=== PATIENT | male | born 1945 | race Caucasian/White ===

== ENCOUNTER 2018-01-19 10:48 | Emergency (ER) | payer MEDICARE, MEDICAID ==
[2018-01-19] MEDS ORDERED: fentaNYL 100 MCG/2 ML INJECTION (J3010) As Ordered (11:52)
[2018-01-19 12:59] LABS: BASO # 0.1 10^3/uL (0.0-0.2); BASO % 0.8 % (0.0-1.0); EOS # 0.2 10^3/uL (0.0-0.50); EOS % 2.2 % (0.0-3.0); HEMATOCRIT 46.8 % (42.0-52.0); HEMOGLOBIN 16.1 g/dl (13.5-17.5); IMMATURE GRANULOCYTE % 0.6 % (0-3.0); LYMPH # 1.9 10^3/uL (1.5-4.5); LYMPH % 24.6 % (24.0-44.0); MEAN CORPUSCULAR HEMOGLOBIN 29.9 pg (27.0-33.0); MEAN CORPUSCULAR HGB CONC 34.4 g/dl (32.0-36.5); MEAN CORPUSCULAR VOLUME 86.8 fl (80.0-96.0); MONO # 0.7 10^3/uL (0.0-0.8); MONO % 9.3 % (0.0-5.0); NEUTROPHILS # 4.8 10^3/uL (1.8-7.7); NEUTROPHILS % 62.5 % (36.0-66.0); PLATELET COUNT, AUTOMATED 271 10^3/uL (150-450); RED BLOOD COUNT 5.39 10^6/uL (4.30-6.10); RED CELL DISTRIBUTION WIDTH 13.2 % (11.5-14.5); WHITE BLOOD COUNT 7.7 10^3/uL (4.0-10.0)
[2018-01-19 13:39] LABS: ALBUMIN 4.2 GM/DL (3.2-5.2); ALBUMIN/GLOBULIN RATIO 1.31 (1.00-1.93); ALKALINE PHOSPHATASE 85 U/L (45-117); ALT/SGPT 34 U/L (12-78); ANION GAP 6 MEQ/L (8-16); AST/SGOT 29 U/L (7-37); BILIRUBIN,DIRECT 0.2 MG/DL (0.0-0.2); BILIRUBIN,TOTAL 0.6 MG/DL (0.2-1.0); BLOOD UREA NITROGEN 16 MG/DL (7-18); CALCIUM LEVEL 9.1 MG/DL (8.8-10.2); CARBON DIOXIDE LEVEL 28 MEQ/L (21-32); CHLORIDE LEVEL 106 MEQ/L (98-107); CPK CREATINE PHOSPHOKINASE 157 U/L (39-308); CREATININE FOR GFR 1.29 MG/DL (0.70-1.30); GLOMERULAR FILTRATION RATE 58.1 (>42); GLUCOSE, FASTING 89 MG/DL (70-100); LIPASE 95 U/L (73-393); MB/CK RELATIVE INDEX 1.27 (< OR =4); POTASSIUM SERUM 4.1 MEQ/L (3.5-5.1); SODIUM LEVEL 140 MEQ/L (136-145); TOTAL PROTEIN 7.4 GM/DL (6.4-8.2); TROPONIN I < 0.02 NG/ML (< 0.10)
[2018-01-19] MEDS ORDERED: ISOVUE-370 76% 100ML VIAL (Q9967) As Ordered (13:39)
[2018-01-19 14:00] LABS: NT-PRO BNP 169 PG/ML (<125)
== END 2018-01-19 15:30 | disposition home or self-care (01) ==
LOC: M ED 10:48
DX: R07.9 Chest pain, unspecified (principal); R06.02 Shortness of breath; Z87.442 Personal history of urinary calculi
CPT/HCPCS: Q9967

== ENCOUNTER → 2019-09-14 | Outpatient (REF) | payer MEDICARE, MEDICAID ==
[~2019-09-14] MED LIST: OXYC1TAB23 PO
[2019-09-14 16:21] LABS: CREATININE FOR GFR 1.31 MG/DL (0.70-1.30); GLOMERULAR FILTRATION RATE 56.8 (>42); POTASSIUM SERUM 3.8 MEQ/L (3.5-5.1)
== END ==
LOC: M SFHCPLAZ 14:10
PROVIDERS: ATTEND Family Medicine
DX: Z01.818 Encounter for other preprocedural examination (principal)
CPT/HCPCS: 36415; 80048; 93005; G0463

== ENCOUNTER → 2020-05-17 | Outpatient (CLI) | payer MEDICARE, MEDICAID ==
[~2020-05-17] MED LIST changes: +ALEV220T22 PO; +BACL10TA2 PO
[2020-05-17 19:05] LABS: HEMATOCRIT 45.2 % (42.0-52.0); HEMOGLOBIN 15.4 g/dl (13.5-17.5); MEAN CORPUSCULAR HEMOGLOBIN 30.7 pg (27.0-33.0); MEAN CORPUSCULAR HGB CONC 34.1 g/dl (32.0-36.5); MEAN CORPUSCULAR VOLUME 90.2 fl (80.0-96.0); PLATELET COUNT, AUTOMATED 267 10^3/uL (150-450); RED BLOOD COUNT 5.01 10^6/uL (4.30-6.10); WHITE BLOOD COUNT 5.9 10^3/uL (4.0-10.0)
[2020-05-17 19:16] LABS: INR 0.98; PROTHROMBIN TIME 13.2 SECONDS (11.8-14.0)
[2020-05-17 19:24] LABS: CALCIUM LEVEL 9.3 MG/DL (8.8-10.2); CREATININE FOR GFR 1.53 MG/DL (0.70-1.30); GLOMERULAR FILTRATION RATE 47.5 (>42); POTASSIUM SERUM 4.1 MEQ/L (3.5-5.1)
[2020-05-17 19:31] LABS: APPEARANCE, URINE TURBID (CLEAR); BACTERIA, URINE AUTO NEGATIVE (NEGATIVE); BILIRUBIN, URINE AUTO NEGATIVE (NEGATIVE); BLOOD, URINE BLOOD NEGATIVE (NEGATIVE); COLOR, URINE YELLOW (YELLOW); GLUCOSE, URINE (UA) AUTO NEGATIVE (NEGATIVE); KETONE, URINE AUTO TRACE mg/dL (NEGATIVE); LEUKOCYTE ESTERASE, URINE AUTO 2+ (NEGATIVE); NITRITE, URINE AUTO NEGATIVE (NEGATIVE); PROTEIN, URINE AUTO NEGATIVE (NEGATIVE); RBC, URINE AUTO 0 /HPF (0-3); SPECIFIC GRAVITY URINE AUTO 1.029 (1.002-1.035); SQUAMOUS EPITHELIAL CELL UR AU 0 /HPF (0-6); UROBILINOGEN, URINE AUTO 0.2 mg/dL (0.0-2.0); WBC, URINE AUTO 0 /HPF (0-3)
--- NOTE | 2020-06-13 14:50 | REPPI ---
CHEST X-RAY CLINICAL: Preoperative assessment. TECHNIQUE: PA and lateral. COMPARISON: 01/19/2018. FINDINGS: Mediastinum and cardiac silhouette are normal. Lung che clear without focal consolidation, effusion, or pneumothorax. Skeletal structures are intact. IMPRESSION: No acute cardiopulmonary process or focal consolidation. MTDD
== END ==
LOC: M PLAIMG 14:35
PROVIDERS: ATTEND Nurse Practitioner Women's Health
DX: Z01.812 Encounter for preprocedural laboratory examination (principal); N47.1 Phimosis; Z79.899 Other long term (current) drug therapy
CPT/HCPCS: 36415; 71046; 80048; 81001; 85027; 85610; 87086; G0463

== ENCOUNTER → 2020-05-19 | Outpatient (CLI) | payer MEDICARE, MEDICAID ==
[2020-05-19 16:08] LABS: CALCIUM LEVEL 8.6 MG/DL (8.8-10.2); CREATININE FOR GFR 1.4 MG/DL (0.70-1.30); GLOMERULAR FILTRATION RATE 52.6 (>42); POTASSIUM SERUM 3.9 MEQ/L (3.5-5.1)
== END ==
LOC: M PLALAB 14:00
PROVIDERS: ATTEND Family Medicine
DX: M83.9 Adult osteomalacia, unspecified (principal)

== ENCOUNTER → 2020-05-21 | Outpatient (CLI) | payer MEDICARE, MEDICAID | LOC: M LABSMTC 11:57 | PROVIDERS: ATTEND Anesthesiology | DX: Z01.812 Encounter for preprocedural laboratory examination (principal); Z20.828 Contact with and (suspected) exposure to other viral communicable diseases | CPT/HCPCS: C9803; U0003 ==

== ENCOUNTER 2020-05-26 10:10 | Day surgery (SDC) | payer MEDICARE, MEDICAID ==
[~2020-05-26] VITALS: Ht 177.8 cm; Wt 81.6 kg
[~2020-05-26 10:10] MED LIST changes: -ALEV220T22 PO; -BACL10TA2 PO; +LIDOCAINE 1% MDV 20ML VIAL SQ PRN; +LR 1,000 ML IV ONE; +ceFAZolin SOD 2 GM in IV 1 EA IV ONE
[2020-05-26] MEDS ORDERED: ALEV220T22 PO (10:32)
[2020-05-26] MEDS ORDERED: BACL10TA2 PO (10:32)
[2020-05-26] MEDS ORDERED: BACITRACIN OINTMENT 30GM TUBE As Ordered ONE (10:53)
[2020-05-26] MEDS ORDERED: MIDAZOLAM INJ 2MG/2ML VIAL (J2250 PER 1MG) As Ordered ONE (11:32)
[2020-05-26] MEDS ORDERED: ROCURONIUM BROMIDE 50 MG/5 ML VIAL As Ordered ONE (11:32)
[2020-05-26] MEDS ORDERED: LIDOCAINE 2% 100MG/5ML SDV (FOR ANES.) As Ordered ONE (11:32)
[2020-05-26] MEDS ORDERED: propofoL 200 MG/20 ML VIAL As Ordered ONE (11:32)
[2020-05-26] MEDS ORDERED: fentaNYL 100 MCG/2 ML INJECTION (J3010) As Ordered ONE (11:33)
[2020-05-26] MEDS ORDERED: ONDANSETRON 4MG/2ML VIAL As Ordered ONE (12:06)
[2020-05-26] MEDS ORDERED: dexameTHASONE 4 MG/ML 1ML VIAL (J1100 PER 1MG) As Ordered ONE (12:06)
[2020-05-26] MEDS ORDERED: ePHEDrine SULFATE 25 MG/5 ML(5MG/ML) SYRINGE As Ordered ONE (12:49)
[2020-05-26] MEDS ORDERED: GLYCOPYRROLATE INJ 0.2 MG/ML 2 ML VIAL As Ordered ONE (12:50)
[2020-05-26] MEDS ORDERED: ACETAMINOPHEN 1000MG 100ML IV BTL (OFIRMEV) (J0131 PER 10MG) As Ordered ONE (13:35)
[2020-05-26] MEDS ORDERED: fentaNYL 100 MCG/2 ML INJECTION (J3010) IV PRN (14:30)
[2020-05-26] MEDS ORDERED: HYDROMORPHONE HCL 0.5 MG/ 0.5 ML SYRINGE (J1170 PER 1) IV PRN (14:30)
[2020-05-26] MEDS ORDERED: LR 1,000 ML IV SCH (14:30)
[2020-05-26] MEDS ORDERED: ONDANSETRON 4MG/2ML VIAL IV PRN (14:30)
[2020-05-26] MEDS ORDERED: oxyCODONE 5MG TAB PO PRN (14:30)
[2020-05-26] MEDS ORDERED: PERCOCET 5MG/325MG TAB PO PRN (14:45)
[2020-05-26 15:10] VITALS: BP 118/82
--- NOTE | 2020-05-26 20:12 | ROOPDOC ---
[facility] Report Of Operation Report of Operation DATE OF PROCEDURE: 05/26/20 PREPROCEDURE DIAGNOSIS: Phimosis. POSTPROCEDURE DIAGNOSIS: Phimosis. OPERATIVE PROCEDURE: Circumcision. SURGEON: Leda Payne MD RENDERER: None. ANESTHESIA: General. OPERATIVE INDICATIONS: This is a 74-year-old male who has bothersome phimosis and difficulty retracting his foreskin. He was brought to the operating room today for treatment. DESCRIPTION OF PROCEDURE: The patient was brought to the operating room and general endotracheal anesthesia was induced. Prophylactic antibiotics were infused. He was then placed in the supine position and prepped and draped in the usual sterile fashion. At this point, circumcising incisions were made at the level of coronal sulcus with the foreskin completely pulled over the glans, and the also with the foreskin retracted down off of the glans. These circumcising incisions were then connected using electrocautery. All the foreskin between the circumcising incisions were then removed using electrocautery. Once that was done hemostasis was obtained using the coagulation current. Once satisfied with hemostasis, the skin on the penile shaft was reapproximated to the glans using interrupted #3-0 chromic sutures. Once that was done dressings were applied, including Pool and a Coban dressing, and this marked the conclusion of the procedure. The patient was then awakened from anesthesia and transported to the recovery room in stable condition. ESTIMATED BLOOD LOSS: 10 mL. COMPLICATIONS: None. SPECIMENS: Foreskin. PLAN: The patient will followup in clinic in a approximately 2 weeks for a postoperative visit. LEDA PAYNE MD May 26, 2020 20:12
== END 2020-05-26 15:10 | disposition home or self-care (01) ==
LOC: M SDC 10:10
PROVIDERS: ATTEND Urology
DX: N47.1 Phimosis (principal)
CPT/HCPCS: 54161; 88304; J0131; J0690; J1100; J2250; J2405; J3010

== ENCOUNTER → 2021-02-08 | Outpatient (CLI) | payer MEDICARE, MEDICAID ==
[~2021-02-08] MED LIST changes: +ALEV220T22 PO; +BACL10TA2 PO; -LIDOCAINE 1% MDV 20ML VIAL SQ PRN; -LR 1,000 ML IV ONE; -ceFAZolin SOD 2 GM in IV 1 EA IV ONE
--- NOTE | 2021-02-08 13:10 | REPPI ---
INDICATION: M54.2 NECK PAIN COMPARISON: CT dated 05/25/2016 TECHNIQUE: AP, lateral, flexion/extension, bilateral oblique, swimmer's and open-mouth views. FINDINGS: Evidence for prior posterior fixation at the C1-C2 level. There is no evidence for acute fracture/compression injury or subluxation. Age-related osteopenia and advanced multilevel degenerative changes include endplate sclerosis, osteophytosis and disc space narrowing primarily involving C6-7 and C7-T1 and to a lesser extent C3-4. IMPRESSION: Osteopenia and advanced multilevel degenerative changes. Findings are relatively similar to CT dated 2015. <Electronically signed by Madhu Sagastume > 02/08/21 [id number]
== END ==
LOC: M PLAIMG 11:51
PROVIDERS: ATTEND Family Medicine
DX: M85.88 Other specified disorders of bone density and structure, other site (principal); M50.323 Other cervical disc degeneration at C6-C7 level; M50.33 Other cervical disc degeneration, cervicothoracic region; M50.31 Other cervical disc degeneration, high cervical region

== ENCOUNTER → 2021-03-29 | Outpatient (REF) | payer MEDICARE, MEDICAID ==
[2021-03-29 15:44] LABS: APPEARANCE, URINE MANUAL CLEAR (CLEAR); COLOR, URINE MANUAL YELLOW (YELLOW)
[2021-03-29 15:45] LABS: BILIRUBIN, URINE MANUAL NEGATIVE (NEGATIVE); BLOOD URINE MANUAL NEGATIVE (NEGATIVE); GLUCOSE, URINE (UA) MANUAL NEGATIVE (NEGATIVE); KETONE, URINE MANUAL NEGATIVE (NEGATIVE); LEUKOCYTE ESTERASE, URINE MAN NEGATIVE (NEGATIVE); NITRITE, URINE MANUAL NEGATIVE (NEGATIVE); PROTEIN, URINE MANUAL NEGATIVE (NEGATIVE); UROBILINOGEN, URINE MANUAL NORMAL (NORMAL)
[2021-04-03 03:07] LABS: CREATININE, URINE 398.1 mg/dL (20.0-300.0); OPIATES, URINE Negative ng/mL (Cutoff=300); OXYCODONE URINE Positive (.); OXYCODONE, URINE CONFIRM 5611 ng/mL (Cutoff=100); OXYCODONE/OXYMORPH, URINE Positive (Cutoff=100); OXYMORPHONE, URINE Positive (.); OXYMORPHONE, URINE CONFIRM 1772 ng/mL (Cutoff=100)
== END ==
LOC: M SFHCPLAZ 15:01
PROVIDERS: ATTEND Family Medicine
DX: N18.31 Chronic kidney disease, stage 3a (principal); Z51.81 Encounter for therapeutic drug level monitoring; Z79.899 Other long term (current) drug therapy
CPT/HCPCS: 80307; 81002; G0463

== ENCOUNTER → 2021-03-30 | Outpatient (CLI) | payer MEDICARE, MEDICAID ==
[2021-03-30 11:51] LABS: BLOOD UREA NITROGEN 17 MG/DL (7-18); CARBON DIOXIDE LEVEL 30 MEQ/L (21-32); CHLORIDE LEVEL 111 MEQ/L (98-107); CHOLESTEROL LEVEL 187 MG/DL (<200); GLOMERULAR FILTRATION RATE 57.1 (>42); GLUCOSE, FASTING 83 MG/DL (70-100); HDL CHOLESTEROL 34 MG/DL (>40); LDL CHOLESTEROL 135 MG/DL (<100); NON-HDL-C 153 MG/DL; POTASSIUM SERUM 4.1 MEQ/L (3.5-5.1); SODIUM LEVEL 138 MEQ/L (136-145); TRIGLYCERIDES LEVEL 90 MG/DL (<150)
== END ==
LOC: M PLALAB 09:13
PROVIDERS: ATTEND Family Medicine
DX: N18.31 Chronic kidney disease, stage 3a (principal); Z13.220 Encounter for screening for lipoid disorders; Z79.899 Other long term (current) drug therapy

== ENCOUNTER → 2021-04-05 | Outpatient (CLI) | payer MEDICARE, MEDICAID ==
[2021-04-05 11:20] LABS: BILIRUBIN,DIRECT 0.1 MG/DL (0.0-0.2); BILIRUBIN,TOTAL 0.6 MG/DL (0.2-1.0); TOTAL PROTEIN 6.9 GM/DL (6.4-8.2)
== END ==
LOC: M PLALAB 08:15
PROVIDERS: ATTEND Family Medicine
DX: E78.5 Hyperlipidemia, unspecified (principal)

== ENCOUNTER → 2021-11-22 | Outpatient (CLI) | payer MEDICARE, MEDICAID ==
[2021-11-22 14:26] LABS: CALCIUM LEVEL 8.9 MG/DL (8.8-10.2); CREATININE FOR GFR 1.38 MG/DL (0.70-1.30); GLOMERULAR FILTRATION RATE 53.2 (>42); POTASSIUM SERUM 4.1 MEQ/L (3.5-5.1)
== END ==
LOC: M PLALAB 10:15
PROVIDERS: ATTEND Family Medicine
DX: N18.31 Chronic kidney disease, stage 3a (principal)

== ENCOUNTER 2022-03-01 11:39 | Emergency (ER) | payer MEDICARE, MEDICAID ==
[~2022-03-01] VITALS: Ht 175.3 cm; Wt 78.2 kg
[2022-03-01] MEDS ORDERED: OXYC10TA3 PO (12:12)
[2022-03-01 14:20] VITALS: BP 141/80
== END 2022-03-01 14:52 | disposition left against medical advice (07) ==
LOC: M ED 11:39
DX: S09.90XA Unspecified injury of head, initial encounter (principal); W10.9XXA Fall (on) (from) unspecified stairs and steps, initial encounter; W54.8XXA Other contact with dog, initial encounter; N18.9 Chronic kidney disease, unspecified; Y92.009 Unspecified place in unspecified non-institutional (private) residence as the place of occurrence of the external cause; Y93.9 Activity, unspecified; Z53.21 Procedure and treatment not carried out due to patient leaving prior to being seen by health care provider; Z87.442 Personal history of urinary calculi; Z79.899 Other long term (current) drug therapy; Y99.9 Unspecified external cause status

== ENCOUNTER → 2022-03-28 | Outpatient (CLI) | payer MEDICARE, MEDICAID ==
[~2022-03-28] MED LIST changes: +OXYC10TA3 PO
[2022-03-28 14:36] LABS: ALBUMIN 3.8 GM/DL (3.2-5.2); BILIRUBIN,TOTAL 0.6 MG/DL (0.2-1.0); CALCIUM LEVEL 9.1 MG/DL (8.8-10.2); CHOLESTEROL RISK RATIO 4.261 (<5); CREATININE FOR GFR 1.34 MG/DL (0.70-1.30); POTASSIUM SERUM 4.2 MEQ/L (3.5-5.1); TOTAL PROTEIN 6.6 GM/DL (6.4-8.2)
== END ==
LOC: M PLALAB 09:59
PROVIDERS: ATTEND Physician Assistant
DX: E78.5 Hyperlipidemia, unspecified (principal)

== ENCOUNTER → 2023-01-29 | Outpatient (CLI) | payer MEDICARE, MEDICAID ==
[2023-01-29 14:43] LABS: HEMATOCRIT 42.9 % (42.0-52.0); HEMOGLOBIN 14.1 g/dl (13.5-17.5); MEAN CORPUSCULAR HEMOGLOBIN 29.7 pg (27.0-33.0); MEAN CORPUSCULAR HGB CONC 32.9 g/dl (32.0-36.5); MEAN CORPUSCULAR VOLUME 90.5 fl (80.0-96.0); PLATELET COUNT, AUTOMATED 262 10^3/uL (150-450); RED BLOOD COUNT 4.74 10^6/uL (4.30-6.10); WHITE BLOOD COUNT 8.4 10^3/uL (4.0-10.0)
[2023-01-29 15:08] LABS: ALBUMIN 3.7 G/DL (3.2-5.2); BILIRUBIN,TOTAL 0.7 MG/DL (0.3-1.2); CALCIUM LEVEL 8.8 MG/DL (8.3-10.6); CHOLESTEROL RISK RATIO 3.46 (<5); CREATININE FOR GFR 1.24 MG/DL (0.70-1.30); HDL CHOLESTEROL 31.2 MG/DL (>40); LDL CHOLESTEROL 62.6 MG/DL (<100); NON-HDL-C 76.8 MG/DL; TOTAL PROTEIN 6.5 G/DL (5.7-8.2)
[2023-01-29 15:13] LABS: FREE T4 0.98 NG/DL (0.89-1.76); THYROID STIMULATING HORMONE 5.568 uIU/ML (0.55-4.78)
== END ==
LOC: M PLALAB 09:31
PROVIDERS: ATTEND Physician Assistant
DX: E03.9 Hypothyroidism, unspecified (principal); E78.5 Hyperlipidemia, unspecified

== ENCOUNTER → 2023-04-21 | Outpatient (CLI) | payer MEDICARE, MEDICAID | LOC: M PLAIMG 10:30 | PROVIDERS: ATTEND Family Medicine | DX: M51.37 Other intervertebral disc degeneration, lumbosacral region (principal) ==

== ENCOUNTER → 2024-05-03 | Outpatient (CLI) | payer MEDICARE, MEDICAID ==
[2024-05-03 11:15] LABS: BASO % 0.5 % (0.0-1.0); EOS # 0.1 10^3/uL (0.0-0.5); EOS % 1.7 % (0.0-3.0); HEMATOCRIT 40.5 % (42.0-52.0); HEMOGLOBIN 13.5 g/dl (13.5-17.5); LYMPH # 1.3 10^3/uL (1.5-5.0); LYMPH % 22.1 % (24.0-44.0); MEAN CORPUSCULAR HEMOGLOBIN 31.1 pg (27.0-33.0); MEAN CORPUSCULAR HGB CONC 33.3 g/dl (32.0-36.5); MEAN CORPUSCULAR VOLUME 93.3 fl (80.0-96.0); MONO # 0.6 10^3/uL (0.0-0.8); MONO % 9.9 % (2.0-8.0); NEUTROPHILS # 3.9 10^3/uL (1.5-8.5); NEUTROPHILS % 65.5 % (36.0-66.0); PLATELET COUNT, AUTOMATED 251 10^3/uL (150-450); RED BLOOD COUNT 4.34 10^6/uL (4.30-6.10); WHITE BLOOD COUNT 5.9 10^3/uL (4.0-10.0)
[2024-05-03 11:49] LABS: THYROID STIMULATING HORMONE 16.233 uIU/ML (0.55-4.78)
[2024-05-03 11:50] LABS: FREE T4 0.82 NG/DL (0.89-1.76)
[2024-05-03 12:03] LABS: CALCIUM LEVEL 9.1 MG/DL (8.3-10.6); CHOLESTEROL RISK RATIO 3.76 (<5); CREATININE FOR GFR 1.46 MG/DL (0.70-1.30); GLOMERULAR FILTRATION RATE 49.6 (>42); LDL CHOLESTEROL 65.4 MG/DL (<100); POTASSIUM SERUM 3.4 MMOL/L (3.5-5.1); TOTAL T3 62.5 NG/DL (60.0-181.0)
[2024-05-03 12:08] LABS: HEMOGLOBIN A1c 5.5 % (4.0-6.0)
== END ==
LOC: M PLALAB 08:44
PROVIDERS: ATTEND Internal Medicine Cardiovascular Disease
DX: I48.0 Paroxysmal atrial fibrillation (principal); E78.5 Hyperlipidemia, unspecified; E03.9 Hypothyroidism, unspecified; Z79.899 Other long term (current) drug therapy

== ENCOUNTER → 2024-05-03 | Outpatient (CLI) | payer MEDICARE, MEDICAID ==
[2024-05-03 11:14] LABS: HEMATOCRIT 40.6 % (42.0-52.0); HEMOGLOBIN 13.6 g/dl (13.5-17.5); MEAN CORPUSCULAR HEMOGLOBIN 31.1 pg (27.0-33.0); MEAN CORPUSCULAR HGB CONC 33.5 g/dl (32.0-36.5); MEAN CORPUSCULAR VOLUME 92.7 fl (80.0-96.0); PLATELET COUNT, AUTOMATED 253 10^3/uL (150-450); RED BLOOD COUNT 4.38 10^6/uL (4.30-6.10); WHITE BLOOD COUNT 5.6 10^3/uL (4.0-10.0)
[2024-05-03 11:50] LABS: ALBUMIN 3.7 G/DL (3.2-5.2); BILIRUBIN,TOTAL 0.8 MG/DL (0.3-1.2); CALCIUM LEVEL 9.2 MG/DL (8.3-10.6); CHOLESTEROL RISK RATIO 3.31 (<5); CREATININE FOR GFR 1.42 MG/DL (0.70-1.30); GLOMERULAR FILTRATION RATE 51.2 (>42); HDL CHOLESTEROL 32.6 MG/DL (>40); LDL CHOLESTEROL 57.6 MG/DL (<100); NON-HDL-C 75.4 MG/DL; POTASSIUM SERUM 3.4 MMOL/L (3.5-5.1); PROSTATIC SPECIFIC AG MONITOR 0.98 NG/ML (< 4.00); TOTAL 25(OH) VITAMIN D 37.2 NG/ML (20.0-100.0); TOTAL PROTEIN 6.5 G/DL (5.7-8.2); TOTAL T3 50.9 NG/DL (60.0-181.0)
[2024-05-03 11:51] LABS: THYROID STIMULATING HORMONE 15.184 uIU/ML (0.55-4.78)
[2024-05-03 11:52] LABS: FREE T4 0.83 NG/DL (0.89-1.76)
[2024-05-03 12:08] LABS: HEMOGLOBIN A1c 5.4 % (4.0-6.0)
== END ==
LOC: M PLALAB 08:46
PROVIDERS: ATTEND Family Medicine
DX: I48.91 Unspecified atrial fibrillation (principal); E11.9 Type 2 diabetes mellitus without complications; K90.3 Pancreatic steatorrhea; E03.9 Hypothyroidism, unspecified; E20.9 Hypoparathyroidism, unspecified; E55.9 Vitamin D deficiency, unspecified; Z12.5 Encounter for screening for malignant neoplasm of prostate; Z79.899 Other long term (current) drug therapy

== ENCOUNTER → 2024-06-15 | Outpatient (CLI) | payer MEDICARE, MEDICAID | LOC: M RAD 16:46 | PROVIDERS: ATTEND Family Medicine | DX: R41.82 Altered mental status, unspecified (principal); R42 Dizziness and giddiness ==

== ENCOUNTER → 2024-08-25 | Outpatient (REF) | payer MEDICARE, MEDICAID ==
[2024-08-25 11:12] LABS: FREE T4 0.96 NG/DL (0.89-1.76); THYROID STIMULATING HORMONE 19.029 uIU/ML (0.55-4.78)
[2024-08-25 11:15] LABS: TOTAL T3 70.6 NG/DL (60.0-181.0)
== END ==
LOC: M PLALAB 10:16
PROVIDERS: ATTEND Family Medicine
DX: E03.9 Hypothyroidism, unspecified (principal); E20.9 Hypoparathyroidism, unspecified

== ENCOUNTER 2025-03-28 22:49 | Inpatient (IN) | payer MEDICARE, MEDICAID ==
[~2025-03-28] VITALS: Ht 175.3 cm; Wt 85.5 kg
[2025-03-29 00:12] LABS: VENOUS PH 7.379 UNITS (7.330-7.430)
[2025-03-29 00:13] LABS: VENOUS BASE EXCESS 2.2 (-2.0-2.0); VENOUS HCO3 28.2 MMOL/L (23.0-27.0); VENOUS O2 SATURATION 65.5 % (60.0-80.0); VENOUS PARTIAL PRESSURE CO2 48.9 mmHg (38.0-50.0); VENOUS PARTIAL PRESSURE O2 33.2 mmHg (30.0-50.0); VENOUS STANDARD HCO3 25.6 MMOL/L; VENOUS TOTAL CO2 29.7 MMOL/L (24.0-28.0)
[2025-03-29 00:26] LABS: BASO # 0.0 10^3/uL (0.0-0.2); BASO % 0.7 % (0.0-1.0); EOS # 0.1 10^3/uL (0.0-0.5); EOS % 2.4 % (0.0-3.0); LYMPH # 1.4 10^3/uL (1.5-5.0); LYMPH % 24.4 % (24.0-44.0); MONO # 0.7 10^3/uL (0.0-0.8); MONO % 11.2 % (2.0-8.0); NEUTROPHILS # 3.6 10^3/uL (1.5-8.5); NEUTROPHILS % 60.5 % (36.0-66.0); PLATELET COUNT, AUTOMATED 182 10^3/uL (150-450)
[2025-03-29 00:54] LABS: CK-MB VALUE MASS 3.3 NG/ML (<3.6)
[2025-03-29 00:55] LABS: ETHYL ALCOHOL (ETHANOL) < 0.003 % (0.000-0.010)
[2025-03-29 00:56] LABS: CPK CREATINE PHOSPHOKINASE 145 U/L (46-171); MB/CK RELATIVE INDEX 2.27 (< OR =4); SALICYLATE LEVEL < 3.0 MG/DL (<30)
[2025-03-29 00:57] LABS: ALT/SGPT 15 U/L (7.0-40); AST/SGOT 22 U/L (<34); CALCIUM LEVEL 8.9 MG/DL (8.3-10.6); CARBON DIOXIDE LEVEL 29 MMOL/L (20-31); CHLORIDE LEVEL 104 MMOL/L (98-107); CREATININE FOR GFR 1.49 MG/DL (0.70-1.30); GLOMERULAR FILTRATION RATE 47.2 (>35); POTASSIUM SERUM 3.3 MMOL/L (3.5-5.1); SODIUM LEVEL 142 MMOL/L (136-145)
[2025-03-29] MEDS ORDERED: ISOVUE-370 76% 100 ML VIAL As Ordered ONE (01:32)
[2025-03-29 01:38] LABS: FREE T4 0.87 NG/DL (0.89-1.76)
[2025-03-29 01:39] LABS: KETONE, URINE AUTO RFX NEGATIVE (NEGATIVE); LEUKOCYTE ESTERASE UR AUTO RFX NEGATIVE (NEGATIVE); MUCUS, URINE RFX SMALL (NEGATIVE); NITRITE, URINE AUTO RFX NEGATIVE (NEGATIVE); RBC, URINE AUTO RFX 1 /HPF (0-3); SQUAM EPITHELIAL CELL UR AURFX 0 /HPF (0-6); WBC, URINE AUTO RFX 0 /HPF (0-3)
[2025-03-29 02:42] LABS: AMPHETAMINES LEVEL URINE NEGATIVE (NEGATIVE); BARBITURATES URINE NEGATIVE (NEGATIVE); BENZODIAZEPINES URINE NEGATIVE (NEGATIVE); CANNABINOIDS URINE NEGATIVE (NEGATIVE); COCAINE METABOLITE URINE NEGATIVE (NEGATIVE); METHADONE URINE NEGATIVE (NEGATIVE); OPIATES URINE NEGATIVE (NEGATIVE); PHENCYCLIDINE URINE NEGATIVE (NEGATIVE)
[2025-03-29 02:45] LABS: CK-MB VALUE MASS 2.5 NG/ML (<3.6)
[2025-03-29 02:46] LABS: CPK CREATINE PHOSPHOKINASE 116.0 U/L (46-171); MB/CK RELATIVE INDEX 2.15 (< OR =4)
[2025-03-29] MEDS ORDERED: ACETAMINOPHEN 325 MG TAB PO PRN (06:40)
[2025-03-29] MEDS ORDERED: MOM 30 ML SUSPENSION UDC PO PRN (06:40)
[2025-03-29] MEDS ORDERED: MAALOX 30 ML SUSP *UDC PO PRN (06:40)
[2025-03-29] MEDS ORDERED: HEPARIN SOD 5000 UNITS/ML 1 ML VIAL/SYRINGE SC SCH (07:45)
[2025-03-29] MEDS ORDERED: ZOLO100T PO (08:12)
[2025-03-29] MEDS ORDERED: DONE5TAB82 PO (08:12)
[2025-03-29] MEDS ORDERED: ATOR80TA59 PO (08:12)
[2025-03-29] MEDS ORDERED: PRIM50TA6 PO (08:12)
[2025-03-29] MEDS ORDERED: GABA-1172 PO (08:12)
[2025-03-29] MEDS ORDERED: LEVO137T2 PO (08:12)
[2025-03-29] MEDS ORDERED: ELIQ5TAB PO (08:12)
[2025-03-29] MEDS ORDERED: TRAZ1TAB10 PO (08:12)
[2025-03-29] MEDS ORDERED: AMIO200T54 PO (08:12)
[2025-03-29] MEDS ORDERED: HOME MED LIST COMPLETE! XX SCH (08:15)
[2025-03-29] MEDS ORDERED: RIVAROXABAN 10MG TAB PO SCH (09:00)
[2025-03-29 09:16] LABS: INR 1.17
[2025-03-29 09:29] LABS: CORTISOL AM 15.8 UG/DL (4.3-22.4)
[2025-03-29] MEDS: HYDROCORTISONE 100 MG/2 ML VIAL IV SCH (09:34)
[2025-03-29] MEDS: DOCUSATE SODIUM 100 MG CAPSULE PO SCH (09:34)
[2025-03-29 09:38] LABS: ALT/SGPT 13.0 U/L (7.0-40); AST/SGOT 22.0 U/L (<34); CALCIUM LEVEL 8.7 MG/DL (8.3-10.6); CARBON DIOXIDE LEVEL 27.0 MMOL/L (20-31); CHLORIDE LEVEL 103.0 MMOL/L (98-107); CREATININE FOR GFR 1.39 MG/DL (0.70-1.30); GLOMERULAR FILTRATION RATE 51.3 (>35); POTASSIUM SERUM 3.6 MMOL/L (3.5-5.1); SODIUM LEVEL 141.0 MMOL/L (136-145)
[2025-03-29] MEDS: LEVOTHYROXINE 100 MCG (0.1 MG) 5ML SDV PF (SOLUTION FORM) IV SCH (09:41)
[2025-03-29] MEDS: LEVOTHYROXINE 137 MCG TABLET (0.137 MG) PO SCH (11:41)
[2025-03-29] MEDS: APIXABAN 5 MG TAB PO SCH (12:31)
[2025-03-29 17:38] VITALS: BP 174/91; TEMP 97.5; O2SAT 96
[2025-03-29 19:57] VITALS: BP 150/78; TEMP 97.5; O2SAT 95
[2025-03-30 05:30] VITALS: BP 152/83; TEMP 97.7; O2SAT 96
[2025-03-30] MEDS: COSYNTROPIN 0.25 MG/ML 1ML VIAL IV ONE (06:30)
[2025-03-30 07:52] LABS: CALCIUM LEVEL 8.8 MG/DL (8.3-10.6); CARBON DIOXIDE LEVEL 27.0 MMOL/L (20-31); CHLORIDE LEVEL 102.0 MMOL/L (98-107); CREATININE FOR GFR 1.3 MG/DL (0.70-1.30); GLOMERULAR FILTRATION RATE 55.5 (>35); MAGNESIUM LEVEL 1.9 MG/DL (1.8-2.4); POTASSIUM SERUM 3.5 MMOL/L (3.5-5.1); SODIUM LEVEL 141.0 MMOL/L (136-145)
[2025-03-30] MEDS ORDERED: AMIO200T54 PO (10:19)
[2025-03-30 12:18] VITALS: BP 158/84; TEMP 97.2; O2SAT 95
== END 2025-03-30 13:27 | disposition home or self-care (01) | DRG 312 ==
LOC: M ED 22:49 → M ED INP 03-29 06:39 → M MSPAV 03-29 17:26
PROVIDERS: ADMIT Student in an Organized Health Care Education/Training Program; ATTEND Student in an Organized Health Care Education/Training Program
DX: R55 Syncope and collapse (principal); E03.5 Myxedema coma; Z79.01 Long term (current) use of anticoagulants; I44.0 Atrioventricular block, first degree; I48.91 Unspecified atrial fibrillation; R00.1 Bradycardia, unspecified; M19.90 Unspecified osteoarthritis, unspecified site; F03.90 Unspecified dementia, unspecified severity, without behavioral disturbance, psychotic disturbance, mood disturbance, and anxiety; I12.9 Hypertensive chronic kidney disease with stage 1 through stage 4 chronic kidney disease, or unspecified chronic kidney disease; N18.9 Chronic kidney disease, unspecified; Z86.73 Personal history of transient ischemic attack (TIA), and cerebral infarction without residual deficits; F41.9 Anxiety disorder, unspecified; F32.A Depression, unspecified; I95.89 Other hypotension; Z79.899 Other long term (current) drug therapy; Z89.029 Acquired absence of unspecified finger(s); F17.220 Nicotine dependence, chewing tobacco, uncomplicated; Z79.890 Hormone replacement therapy